=== PATIENT | male | born 1965 | race Caucasian/White ===

== ENCOUNTER 2019-03-25 10:26 | Inpatient (IN) | payer OTHER ==
[~2019-03-25] VITALS: Ht 172.7 cm; Wt 88.0 kg
[~2019-03-25 10:26] MED LIST: ROPIvacaine/PF 0.5%, 30 ML ONE
[2019-03-25] MEDS ORDERED: LACTATED RINGERS 1,000 ML IV SCH (10:52)
[2019-03-25 10:54] VITALS: BP 125/84
[2019-03-25] MEDS ORDERED: keflex PO (10:54)
[2019-03-25] MEDS ORDERED: naproxen PO (10:54)
[2019-03-25] MEDS ORDERED: SULF1TAB24 PO (10:54)
[2019-03-25] MEDS ORDERED: MIDAZOLAM 1 MG/ML, 2ML ONE (11:21)
[2019-03-25] MEDS ORDERED: FENTANYL PF 250 MCG/5ML ONE (11:22)
[2019-03-25] MEDS ORDERED: ONDANSETRON 2MG/ML, 2ML ONE (11:46)
[2019-03-25] MEDS ORDERED: PROPOFOL 10 MG/ML, 20ML ONE (11:46)
[2019-03-25] MEDS ORDERED: DEXAMETHASONE 4 MG/ML, 1ML ONE (11:46)
[2019-03-25] MEDS ORDERED: CEFAZOLIN 1,000 MG ONE (11:46)
[2019-03-25] MEDS ORDERED: MEPERIDINE/PF 50 MG/ML ONE (11:52)
[2019-03-25] MEDS ORDERED: HYDROmorphone 2 MG/ML, 1ML IVPush PRN (12:00)
[2019-03-25] MEDS ORDERED: DIAZEPAM 5 MG/ML, 2ML IVPush PRN (12:00)
[2019-03-25] MEDS ORDERED: OXYcodone 5 MG/5 ML ORAL.SOL UDC PO PRN (12:00)
[2019-03-25] MEDS ORDERED: MEPERIDINE/PF 25MG/0.5ML IVPush PRN (12:00)
[2019-03-25] MEDS ORDERED: hydrALAzine 20 MG/ML, 1ML IV PRN (12:00)
[2019-03-25] MEDS ORDERED: ALBUTEROL SULFATE 2.5 MG/3 ML NPPB PRN (12:00)
[2019-03-25] MEDS ORDERED: ACETAMINOPHEN 325 MG TABLET PO PRN (12:00)
[2019-03-25] MEDS ORDERED: PROMETHAZINE 25 MG/ML, 1ML IV PRN (12:00)
[2019-03-25] MEDS ORDERED: KETOROLAC 30 MG/1 ML IV PRN (12:00)
[2019-03-25] MEDS ORDERED: LABETALOL 5MG/ML, 20ML IV PRN (12:00)
[2019-03-25] MEDS ORDERED: FENTANYL PF 100 MCG/2ML ONE (12:28)
[2019-03-25] MEDS ORDERED: OXYcodone 5 MG/5 ML ORAL.SOL UDC ONE (12:28)
[2019-03-25] MEDS ORDERED: ACETAMINOPHEN 650 MG/20.3 ML UDC ONE (12:28)
[2019-03-25] MEDS: FENTANYL PF 100 MCG/2ML IV PRN ×2 (12:30→12:52)
[2019-03-25] MEDS ORDERED: KETOROLAC 30 MG/1 ML ONE (12:45)
[2019-03-25 14:00] VITALS: BP 133/79
[2019-03-25] MEDS ORDERED: ONDANSETRON 2MG/ML, 2ML IV PRN (14:30)
[2019-03-25] MEDS ORDERED: KETOROLAC 30 MG/1 ML IV SCH (14:30)
[2019-03-25] MEDS ORDERED: VANCOMYCIN PER PHARMACY MC PRN (14:30)
[2019-03-25] MEDS ORDERED: PHARMACOKINETIC CONSULTATION MC ONE (14:30)
[2019-03-25] MEDS ORDERED: PHARMACOKINETIC MONITORING MC PRN (14:30)
[2019-03-25] MEDS ORDERED: VANCOMYCIN 1,700 MG in SODIUM CHLORIDE 0.9% 250 ML IV ONE (14:30)
[2019-03-25 19:22] VITALS: BP 113/78
[2019-03-25] MEDS: KETOROLAC 30 MG/1 ML IV SCH (20:45)
[2019-03-25] MEDS: CEFAZOLIN PMX 1GM/50ML 50 ML IV SCH (20:45)
[2019-03-25] MEDS: OXYcodone/APAP 5/325MG TABLET PO PRN ×2 (20:46→23:51)
[2019-03-25 23:55] VITALS: BP 133/72
[2019-03-26 03:26] VITALS: BP 130/71
[2019-03-26] MEDS: CEFAZOLIN PMX 1GM/50ML 50 ML IV SCH ×3 (04:01→20:26)
[2019-03-26] MEDS: KETOROLAC 30 MG/1 ML IV SCH ×2 (04:01→12:01)
[2019-03-26] MEDS: OXYcodone/APAP 5/325MG TABLET PO PRN ×4 (04:09→19:24)
[2019-03-26 05:53] LABS: CREATININE 0.87 mg/dL (0.7-1.3)
[2019-03-26] MEDS ORDERED: PHARMACOKINETIC CONSULTATION MC ONE (06:00)
[2019-03-26] MEDS ORDERED: PHARMACOKINETIC MONITORING MC PRN (06:00)
[2019-03-26] MEDS: VANCOMYCIN 1,500 MG in SODIUM CHLORIDE 0.9% 250 ML IV SCH ×2 (06:26→17:23)
[2019-03-26 07:51] VITALS: BP 106/70
[2019-03-26] MEDS: ENOXAPARIN 40 MG/0.4 ML SQ SCH (08:06)
[2019-03-26 12:14] LABS: BASOPHILS # (AUTO) 0.01 x10^3/uL (0-0.1); BASOPHILS % (AUTO) 0 % (0-1); EOSINOPHILS # (AUTO) 0.05 x10^3/uL (0-0.4); EOSINOPHILS % (AUTO) 1 % (1-7); LYMPHOCYTES # (AUTO) 1.92 x10^3/uL (1-3.4); LYMPHOCYTES % (AUTO) 29 % (22-44); MD NO; MEAN CORPUSCULAR HEMOGLOBIN 31.1 pg (27.5-34.5); MEAN CORPUSCULAR HGB CONC 32.6 g/dL (33.2-36.2); MEAN CORPUSCULAR VOLUME 95.2 fL (81-97); MEAN PLATELET VOLUME 8.2 fL (7.4-10.4); MONOCYTES # (AUTO) 0.48 x10^3/uL (0.2-0.8); MONOCYTES % (AUTO) 7 % (2-9); NEUTROPHILS % (AUTO) 63 % (42-75); PLATELET COUNT 246 x10^3/uL (130-400); RED BLOOD COUNT 3.92 x10^6/uL (4.38-5.82); RED CELL DISTRIBUTION WIDTH 13.3 % (9.4-14.8)
[2019-03-26 12:23] VITALS: BP 111/70
[2019-03-26 12:26] LABS: ANION GAP 5 mmol/L (5-15); CALCIUM 8.6 mg/dL (8.5-10.1); CHLORIDE 108 mmol/L (98-107)
[2019-03-26 12:30] LABS: ALANINE AMINOTRANSFERASE 19 U/L (12-78); ALKALINE PHOSPHATASE 71 U/L (45-117); BILIRUBIN,TOTAL 0.5 mg/dL (0.2-1.0); CREATININE 0.81 mg/dL (0.7-1.3); TOTAL PROTEIN 6.5 g/dL (6.4-8.2)
[2019-03-26 19:44] VITALS: BP 122/79
[2019-03-27 04:16] VITALS: BP 124/79
[2019-03-27] MEDS: CEFAZOLIN PMX 1GM/50ML 50 ML IV SCH ×3 (04:25→19:37)
[2019-03-27] MEDS: OXYcodone/APAP 5/325MG TABLET PO PRN ×4 (04:27→20:13)
[2019-03-27] MEDS: VANCOMYCIN 1,500 MG in SODIUM CHLORIDE 0.9% 250 ML IV SCH ×2 (06:04→18:15)
[2019-03-27] MEDS: ENOXAPARIN 40 MG/0.4 ML SQ SCH (08:48)
[2019-03-27 09:53] VITALS: BP 130/83
[2019-03-27 13:19] VITALS: BP 123/81
[2019-03-27 21:25] VITALS: BP 131/86
[2019-03-27] MEDS: LACTOBACILLUS 1GM/ PACKET PO SCH (21:31)
[2019-03-28] MEDS: CEFAZOLIN PMX 1GM/50ML 50 ML IV SCH ×3 (04:04→19:37)
[2019-03-28 04:29] VITALS: BP 118/77
[2019-03-28] MEDS: OXYcodone/APAP 5/325MG TABLET PO PRN ×4 (04:55→18:36)
[2019-03-28] MEDS: VANCOMYCIN 1,500 MG in SODIUM CHLORIDE 0.9% 250 ML IV SCH (05:43)
[2019-03-28] MEDS: ENOXAPARIN 40 MG/0.4 ML SQ SCH (08:00)
[2019-03-28 09:09] VITALS: BP 102/67
[2019-03-28] MEDS: LACTOBACILLUS 1GM/ PACKET PO SCH ×3 (09:27→21:10)
[2019-03-28 13:35] VITALS: BP 122/82
[2019-03-28] MEDS ORDERED: ERTAPENEM 1 GM in SODIUM CHLORIDE 0.9% 50 ML IV SCH (14:00)
[2019-03-28] MEDS ORDERED: INSTRUCTION SEE COMMENTS XX PRN (14:30)
[2019-03-28 18:43] VITALS: BP 119/83
[2019-03-29 01:50] VITALS: BP 127/77
[2019-03-29] MEDS: CEFAZOLIN PMX 1GM/50ML 50 ML IV SCH ×3 (04:04→20:24)
[2019-03-29] MEDS: OXYcodone/APAP 5/325MG TABLET PO PRN ×4 (04:19→18:45)
[2019-03-29] MEDS: ENOXAPARIN 40 MG/0.4 ML SQ SCH (08:00)
[2019-03-29 08:01] VITALS: BP 108/63
[2019-03-29] MEDS: LACTOBACILLUS 1GM/ PACKET PO SCH ×3 (08:50→20:24)
[2019-03-29] MEDS ORDERED: ERTA1VIA IV (09:19)
[2019-03-29 14:55] VITALS: BP 121/73
[2019-03-29 18:35] VITALS: BP 116/77
[2019-03-30 02:00] VITALS: BP 130/87
[2019-03-30] MEDS: CEFAZOLIN PMX 1GM/50ML 50 ML IV SCH ×3 (04:52→19:57)
[2019-03-30 05:35] LABS: CREATININE 0.78 mg/dL (0.7-1.3)
[2019-03-30 06:42] VITALS: BP 122/81
[2019-03-30] MEDS: LACTOBACILLUS 1GM/ PACKET PO SCH ×3 (08:00→21:04)
[2019-03-30] MEDS: ENOXAPARIN 40 MG/0.4 ML SQ SCH (08:00)
[2019-03-30] MEDS: ERTAPENEM 1 GM in SODIUM CHLORIDE 0.9% 50 ML IV SCH (09:00)
[2019-03-30 12:30] VITALS: BP 125/83
[2019-03-30 20:15] VITALS: BP 119/85
[2019-03-31 01:43] VITALS: BP 114/77
[2019-03-31] MEDS: OXYcodone/APAP 5/325MG TABLET PO PRN ×2 (02:11→08:02)
[2019-03-31] MEDS: CEFAZOLIN PMX 1GM/50ML 50 ML IV SCH ×3 (04:00→20:14)
[2019-03-31 06:58] VITALS: BP 113/73
[2019-03-31] MEDS: LACTOBACILLUS 1GM/ PACKET PO SCH ×3 (07:55→20:23)
[2019-03-31] MEDS: ERTAPENEM 1 GM in SODIUM CHLORIDE 0.9% 50 ML IV SCH (07:56)
[2019-03-31] MEDS: ENOXAPARIN 40 MG/0.4 ML SQ SCH (07:56)
[2019-03-31 16:48] VITALS: BP 127/94
[2019-03-31 20:11] VITALS: BP 111/67
[2019-04-01] MEDS: CEFAZOLIN PMX 1GM/50ML 50 ML IV SCH ×2 (04:41→12:24)
[2019-04-01 04:44] VITALS: BP 120/73
[2019-04-01] MEDS: ERTAPENEM 1 GM in SODIUM CHLORIDE 0.9% 50 ML IV SCH ×2 (07:35→13:58)
[2019-04-01 07:59] VITALS: BP 116/77
[2019-04-01] MEDS: ENOXAPARIN 40 MG/0.4 ML SQ SCH (07:59)
[2019-04-01] MEDS: LACTOBACILLUS 1GM/ PACKET PO SCH (09:13)
[2019-04-01 13:55] VITALS: BP 106/69
== END 2019-04-01 16:55 | disposition home or self-care (01) | DRG 558 ==
LOC: OUT 10:26 → ORIP 12:47 → OBSVTOIN 12:47 → INTOOBSV 12:47 → 4NOR 13:55 → DCLOUNGE 04-01 16:33
PROVIDERS: ADMIT Orthopaedic Surgery; ATTEND Orthopaedic Surgery
PROC: 0Y9G0ZZ Drainage of Left Knee Region, Open Approach (ICD-10-PCS; principal; 2019-03-25 12:15)
PROC: 02HV33Z Insertion of Infusion Device into Superior Vena Cava, Percutaneous Approach (ICD-10-PCS; 2019-03-28)
PROC: B548ZZA Ultrasonography of Superior Vena Cava, Guidance (ICD-10-PCS; 2019-03-28)
PROC: B5181ZA Fluoroscopy of Superior Vena Cava using Low Osmolar Contrast, Guidance (ICD-10-PCS; 2019-03-28)
DX: M70.42 Prepatellar bursitis, left knee (principal); L03.116 Cellulitis of left lower limb
CPT/HCPCS: 36415; 36573; 80053; 80202; 82565; 84520; 85025; 87015; 87040; 87070; 87075; 87077; 87102; 87116; 87176; 87186; 87205; 87206; G0378; J0690; J1100; J1335; J1650; J1885; J2175; J2250; J2405; J2704; J2795; J3010; J3370; C1751; J7050; J7120